=== PATIENT | female | born 1990 | race Caucasian/White ===

== ENCOUNTER 2023-02-27 10:35 | Outpatient (CLI) | payer BC, SELFPAY ==
--- NOTE | 2023-02-27 11:40 | W.ANESCHARGE ---
Anesthesia Charges Start Date/Time Anesthesia Start Date: 02/27/23 Anesthesia Start Time: 11:21 Stop Date/Time Anesthesia Stop Date: 02/27/23 Anesthesia Stop Time: 12:03
--- NOTE | 2023-02-27 12:05 | W.ANESCHARGE ---
Anesthesia Charges Start Date/Time Anesthesia Start Date: 02/27/23 Anesthesia Start Time: 11:21 Stop Date/Time Anesthesia Stop Date: 02/27/23 Anesthesia Stop Time: 12:03
== END 2023-02-27 10:36 | disposition home or self-care (01) ==
PROVIDERS: Visit Provider Internal Medicine Gastroenterology
DX: R19.7 Diarrhea, unspecified (principal); K22.89 Other specified disease of esophagus; K21.00 Gastro-esophageal reflux disease with esophagitis, without bleeding
CPT/HCPCS: 00813; 43239; 45380; 88305; J2405; J2704; J3490